=== PATIENT | male | born 1960 | race Caucasian/White ===

== ENCOUNTER 2017-11-10 06:29 | Day surgery (SDC) | payer OTHER ==
[2017-11-10] MEDS ORDERED: HYDROmorphONE (0.2 MG/ML) 10ML SYG IV ×3 (07:00)
[2017-11-10] MEDS ORDERED: FENTAnyl 50 MCG/ML VIAL IV ×2 (07:00)
[2017-11-10] MEDS ORDERED: morphine (1 MG/ML) 10ML SYRINGE IV ×3 (07:00)
[2017-11-10] MEDS ORDERED: hydrALAzine 20 MG INJ IV (07:00)
[2017-11-10] MEDS ORDERED: ONDANSETRON 4 MG INJ IV (07:00)
[2017-11-10] MEDS ORDERED: OXYCODONE/ACETAMINOPHEN (5/325) TAB PO ×2 (07:00)
[2017-11-10] MEDS ORDERED: EPHEDrine SULFATE 50 MG/5 ML SYG IV (07:00)
[2017-11-10] MEDS ORDERED: ATROPINE 1 MG/10 ML SYRINGE IV (07:00)
[2017-11-10] MEDS ORDERED: LABETALOL HCL 20MG INJ IV (07:00)
[2017-11-10] MEDS ORDERED: DIPHENHYDRAMINE 50 MG INJ IV (07:00)
[2017-11-10] MEDS ORDERED: MEPERIDINE 25 MG INJ IV (07:00)
[2017-11-10] MEDS ORDERED: MIDAZOLAM 1 MG/ML 2 ML INJ IV (07:00)
[2017-11-10] MEDS: CYCLOPENTOLATE/PHENYLEPH 2 ML OPH OPER (07:56)
[2017-11-10] MEDS: TROPICAMIDE 1% 3 ML OPH OPER (07:56)
[2017-11-10] MEDS: PROPARACAINE 0.5% 15 ML OPH OPER (07:56)
[2017-11-10] MEDS: MOXIFLOXACIN 0.5% 3 ML OPH OPER (07:57)
[2017-11-10] MEDS ORDERED: SOD CHLORIDE 0.9% 1,000 ML IV (08:00)
[2017-11-10] MEDS: PHENYLephrine 2.5% 15 ML OPH OPER ×2 (08:16→08:34)
[2017-11-10] MEDS ORDERED: PREDNISOLONE ACET 1% 5 ML OPH OPER (08:23)
[2017-11-10] MEDS: PREDNISOLONE ACET 1% 5 ML OPH LEFT EYE (08:27)
[2017-11-10] MEDS ORDERED: EPINEPHRINE MC (08:30)
[2017-11-10] MEDS: PREDNISOLONE ACET 1% 5 ML OPH OPER (08:37)
[2017-11-10] MEDS: SODIUM HYALURONATE 14 MG/ML SYG IO (09:15)
[2017-11-10] MEDS ORDERED: TOBRAMYCIN 0.3% 3.5 GM OPH OINT ×2 (09:40→09:51)
[2017-11-10] MEDS ORDERED: TRYPAN BLUE 0.5 ML SYG IO (09:52)
[2017-11-10] MEDS ORDERED: LIDOCAINE 2% (SDV) 5 ML INJ (09:52)
[2017-11-10] MEDS ORDERED: BUPIVACAINE 0.75% (MPF) 10 ML INJ (09:52)
[2017-11-10] MEDS: TOBRAMYCIN 0.3% 3.5 GM OPH OINT LEFT EYE (10:04)
[2017-11-10] MEDS ORDERED: LIDOCAINE 100 MG SYRINGE (10:27)
[2017-11-10] MEDS ORDERED: PROPOFOL 20 ML (10:27)
[2017-11-10] MEDS ORDERED: SODIUM HYALURONATE 14 MG/ML SYG IO (15:00)
== END 2017-11-10 12:01 | disposition home or self-care (01) ==
LOC: SDS 06:29
DX: H26.8 Other specified cataract (principal); E78.5 Hyperlipidemia, unspecified
CPT/HCPCS: 66984